=== PATIENT | male | born 1955 | race Caucasian/White ===

== ENCOUNTER 2018-06-10 09:55 | Day surgery (SDC) | payer OTHER ==
[2018-06-08 09:11] VITALS: BMI 22.4
[~2018-06-10 09:55] MED LIST: LACTATED RINGERS 1,000 ML IV SCH
[2018-06-10 10:20] VITALS: TEMP 98.9
[2018-06-10 10:24] LABS: Glucose,Whole Blood 61 mg/dL (75-99)
[2018-06-10] MEDS ORDERED: DEXTROSE 50%-WATER 50 ML SYRINGE IVP ONE (10:25)
[2018-06-10] MEDS ORDERED: PROPOFOL 10 MG/ML 20 ML VIAL IV ONE (10:31)
[2018-06-10 10:42] LABS: Glucose,Whole Blood 125 mg/dL (75-99)
--- NOTE | 2018-06-10 10:55 | P.PCN ---
Date of Procedure: 06/10/18 Procedure(s) Performed: Procedure: Total colonoscopy. Preoperative diagnosis: Change in bowel habits. Postoperative diagnosis: Sigmoid diverticulosis with no evidence of acute diverticulitis, strictures, polyps or cancer. Preparation: HalfLytely prep. Sedation: Was provided by anesthesia. Brief clinical history: The patient is a 63-year-old male who is scheduled for this evaluation because of change in bowel habits since last month with feeding for this and infrequent bowel movements. He has no other abdominal complaints, bleeding or anemia. This would be his first colonoscopy. Procedure: With the patient left lateral decubitus position and after informed consent and adequate sedation, the perianal area was inspected and it did not show any fissures or fistulas. There were no masses felt on digital rectal examination. The Olympus CFH 190L video colonoscope was then inserted in the rectum in the usual fashion and advanced to the cecum. There were few diverticular orifices seen scattered in the sigmoid with no evidence of acute diverticulitis or strictures. No polyps or tumors were seen or any other pathology. I retroflexed the endoscope in the rectum before the endoscope was withdrawn. The patient tolerated the procedure well. Plan: The patient was reassured. Discussed dietary measures. He will follow up with you as planned and I recommended repeat exam in 10 years.
[2018-06-10 11:20] VITALS: BP 137/89; PULSE 79; RESP 18
[2018-06-10 11:20] LABS: Glucose,Whole Blood 108 mg/dL (75-99)
== END 2018-06-10 11:48 | disposition home or self-care (01) ==
LOC: ORWHC2ENDO 09:55
DX: K57.30 Diverticulosis of large intestine without perforation or abscess without bleeding (principal); M06.9 Rheumatoid arthritis, unspecified; M19.90 Unspecified osteoarthritis, unspecified site; F17.210 Nicotine dependence, cigarettes, uncomplicated; Z79.891 Long term (current) use of opiate analgesic; Z79.899 Other long term (current) drug therapy
CPT/HCPCS: 45378; J2704

== ENCOUNTER → 2018-06-24 | Outpatient (CLI) | payer OTHER | LOC: LABWHC1 11:17 | PROVIDERS: ATTEND Internal Medicine Rheumatology | DX: M06.9 Rheumatoid arthritis, unspecified (principal) | CPT/HCPCS: 36415 ==

== ENCOUNTER 2018-07-08 07:46 | Day surgery (SDC) | payer OTHER ==
[2018-07-06 13:40] VITALS: BMI 20.2
[~2018-07-08 07:46] MED LIST changes: +LIDOCAINE 1% 20 ML VIAL (10MG/ML) FOR IV START INTRADERMA PRN; +MIDAZOLAM (PF) 2 MG/2 ML VIAL IV PRN
[2018-07-08 08:21] LABS: Glucose,Whole Blood 79 mg/dL (75-99)
[2018-07-08 08:22] VITALS: RESP 16; TEMP 97.8
[2018-07-08] MEDS ORDERED: PROPOFOL 10 MG/ML 20 ML VIAL IV ONE (09:09)
[2018-07-08] MEDS ORDERED: LIDOCAINE 1% INJ 10MG/ML (20 ML MDV) ONE (09:09)
[2018-07-08 09:39] LABS: Glucose,Whole Blood 87 mg/dL (75-99)
--- NOTE | 2018-07-08 09:39 | P.PCN ---
Date of Procedure: 07/08/18 Procedure(s) Performed: Procedure: Esophagogastroduodenoscopy and biopsy. Preoperative diagnosis: Dysphagia. Postoperative diagnosis: 1. Gastritis and ulcerated mass in the cardia consistent with cancer. 2. Biopsies obtained. Preparation and sedation: Was provided by anesthesia. Brief clinical history: The patient is a 63-year-old male who has been experiencing no appetite and lost 20 pounds. He was initially referred for colonoscopy which was performed last month and showed diverticulosis. He has dental extractions in April and some of his symptoms were initially felt to be related to having not been able to chew his food well. A barium swallow was recommended and it was done earlier this month and that showed possible narrowing in the distal esophagus. This evaluation is to assess for stricture or other pathology. Procedure: With the patient on his left lateral decubitus position and after informed consent and adequate sedation, I passed the Olympus-GIF H 190 video upper endoscope through the cricopharyngeus down the esophagus. There was minimal hesitation to passing the endoscope in the distal esophagus and I noted some friability. The esophagus did not show any obvious esophagitis or masses. The endoscope was then passed into the stomach which was insufflated with air and inspected in detail including the retroflex view in the cardia. I also passed the endoscope through the pylorus into the duodenum. Pyloric channel did not show any ulcers. Duodenal bulb, post bulbar area and descending duodenum mottling and erythema. I obtained biopsies from the duodenum. The antrum showed diffuse mottling erythema and in the retroflex view in the cardia there was an ulcerated mass noted surrounding the endoscope. I obtained pictures of that area and multiple biopsies. It appeared consistent with a carcinoma. It measured around 4 or 5 cm in greatest dimension as seen endoscopically. The patient tolerated the procedure well. Plan: I summarized the findings to the patient and his daughter. Will await biopsy results. I anticipate referring this patient to oncology for further evaluation and definitive treatment.
[2018-07-08 10:10] VITALS: BP 138/89; PULSE 65
== END 2018-07-08 10:15 | disposition home or self-care (01) ==
LOC: ORWHC2ENDO 07:46
DX: C16.3 Malignant neoplasm of pyloric antrum (principal); K29.70 Gastritis, unspecified, without bleeding; M19.90 Unspecified osteoarthritis, unspecified site; M06.9 Rheumatoid arthritis, unspecified; F17.210 Nicotine dependence, cigarettes, uncomplicated; Z79.891 Long term (current) use of opiate analgesic; Z79.52 Long term (current) use of systemic steroids; Z79.899 Other long term (current) drug therapy
CPT/HCPCS: 88305; 43239; J2001; J2704

== ENCOUNTER → 2018-07-24 | Outpatient (CLI) | payer OTHER ==
--- NOTE | 2018-07-25 12:57 | PE ---
Nuclear medicine PET/CT HISTORY: Carcinoma of stomach, initial Patient received 14.5 mCi F-18 FDG intravenously in delayed scanning was performed from skull base to the mid thighs. Localization and attenuation correction CT scan was. No comparisons Neck and CHEST: There is no cervical adenopathy. There is a focus of soft tissue within the left paro tid gland measuring approximately 9 mm, SUV is 4.5. Carotid artery calcifications are present. Right axillary soft tissue density is noted which likely represents a node versus redundancy in a vein with localized intravenous pharmaceutical, SUV at this level is 4.6. No pleural or pericardial effusion. There is a nodule soft tissue attenuation at the posterior and lateral margin of the descending aorta , axial image 105 measuring approximately 12 mm which shows an SUV of 4.1. There is a left hilar soft tissue mass present, SUV is 5.1. 2 left upper lobe nodules at this same level are subcentimeter in s ize and show mild hypermetabolic uptake in one of the 2 nodules, SUV is only 1.6, however, there is a larger nodule in the left upper lobe on axial image 78 measuring 1 cm, SUV is 4.3. Subcentimeter rig ht lower lobe nodule on axial image 96 shows mild hypermetabolic uptake, SUV 1.2, at the inferior asp ect of the right lower lobe there is a cavitary lesion present axial image 120, SUV is 2.3, the lesio n measures 18 mm. Mild uptake noted in the right axilla and nonenlarged nodes, SUV 4.2. Emphysematous changes are present within the lungs. Abdomen pelvis: New the level of the gastroesophageal junction there is hypermetabolic uptake identif ied likely at the level of the gastric cardia, SUV is 3.4 likely represent patient's gastric carcinom a. There is no evident retroperitoneal adenopathy. No evident liver mass. There is no ascites. Uptake along the proximal small bowel may be physiologic. Prostate is enlarged and shows associated calcifi cations. Urinary bladder shows a thickened wall possibly due to chronic outlet obstruction. Osseous structures: There is uptake in the left shoulder likely related to patient's postsurgical jonah nge. Degenerative disc changes, facet arthropathy noted in the lower lumbar spine. IMPRESSION: Findings could be indicative of gastric carcinoma, there are findings consistent with met astatic disease as described.
== END | disposition home or self-care (01) ==
LOC: RADPETMAIN 13:18
PROVIDERS: ATTEND Internal Medicine Hematology & Oncology
DX: C16.0 Malignant neoplasm of cardia (principal)
CPT/HCPCS: 78815; A9552

== ENCOUNTER → 2018-08-02 | Outpatient (CLI) | payer OTHER ==
[2018-08-02 19:22] LABS: C Reactive Protein 0.7 mg/dL (0.0-0.8)
== END | disposition home or self-care (01) ==
LOC: LABWHC1 12:09
PROVIDERS: ATTEND Internal Medicine Rheumatology
DX: M06.9 Rheumatoid arthritis, unspecified (principal)
CPT/HCPCS: 36415; 82565; 85652; 86140

== ENCOUNTER 2018-08-12 08:46 | Day surgery (SDC) | payer OTHER ==
[2018-08-12] MEDS ORDERED: ALPRAZolam 0.5 MG TAB PO STA (09:50)
[2018-08-12 09:54] VITALS: RESP 18; TEMP 98.3
[2018-08-12 11:32] VITALS: BP 128/70; PULSE 74
--- NOTE | 2018-08-12 13:14 | US ---
EXAMINATION TYPE: US biopsy lymph node core biopsy right axillary node DATE OF EXAM: 08/12/2018 HISTORY: Right axillary adenopathy, abnormal PET/CT. FINDINGS: Maximal barrier technique was utilized. The skin overlying a suitable path to the patient' s right axillary node was localized with ultrasound and the overlying skin prepped and draped. Ultra sound was utilized with sterile technique. Lidocaine was used for local anesthesia. 3 passes with a fine needle were made and aspirated specimen submitted to cytology. A skin guillaume was made with a scal pel. An 18-gauge needle was advanced under direct ultrasound guidance and core specimen obtained of the mass. 3 core specimens obtained. Specimen submitted in formalin to Pathology. Following the proc edure, hemostasis achieved and the patient is discharged in stable condition without complication. IMPRESSION:STATUS POST ULTRASOUND GUIDED CORE BIOPSY OF right axillary adenopathy, PATHOLOGY IS PENDI NG. THIS PROCEDURE IS PERFORMED BY THE UNDERSIGNED.
== END 2018-08-12 11:25 | disposition home or self-care (01) ==
LOC: RADPROMAIN 08:46
PROVIDERS: ATTEND Internal Medicine Hematology & Oncology
DX: R59.9 Enlarged lymph nodes, unspecified (principal); C16.9 Malignant neoplasm of stomach, unspecified
CPT/HCPCS: 10005; 38505; 76942; 88173; 88305; 88341; 88342

== ENCOUNTER 2018-08-30 09:54 | Day surgery (SDC) | payer OTHER ==
[2018-08-27 11:48] VITALS: BMI 19.0
[~2018-08-30 09:54] MED LIST changes: +ALBUTEROL NEB (CONC) 2.5 MG/0.5 ML INHALATION ONE; +DEXAMETHASONE SOD PHOSPHATE 10 MG/ML 1 ML VIAL IV ONE; +LIDOCAINE 2% (PF) 20 MG/ML 5 ML VIAL INHALATION ONE; +LIDOCAINE VISCOUS 300 MG/15 ML CUP MUCOUS MEM ONE; -MIDAZOLAM (PF) 2 MG/2 ML VIAL IV PRN; +MIDAZOLAM 2 MG/2 ML VIAL IV PRN; +SODIUM CHLORIDE 0.9% 1,000 ML IV SCH; +fentaNYL (PF) 50 MCG/ML 2 ML AMP IV PRN
[2018-08-30 10:19] VITALS: RESP 16; TEMP 97.7
[2018-08-30] MEDS ORDERED: ONDANSETRON 4 MG/2 ML VIAL IVP ONE (10:30)
--- NOTE | 2018-08-30 11:50 | CT ---
EXAMINATION TYPE: CT Chest alexa Roberson Protocol DATE OF EXAM: 08/30/2018 COMPARISON: PET scan 07/24/2018 HISTORY: Pulmonary nodules/mass CT DLP: 651 mGycm Automated exposure control for dose reduction was used. FINDINGS: Scanning was performed prior to pulmonology intervention. Artifact from the left shoulder prostheses limits assessment of the soft tissues neck. Diffuse emphysematous changes are noted. Calcification po steriorly within the right pleura noted. There is a mass in the left upper lobe measuring 1.2 cm. Add itional pulmonary nodules are seen measuring under a centimeter and there is tree-in-bud and groundgl ass changes in the left perihilar region. There also appears to be a mass within the posterior segmen t right lower lobe measuring 1.1 cm. Cavitary lesion or mild involving the posterior right lower lobe measuring 1.7 cm. No pleural effusion or pneumothorax. Additional nodule seen anteriorly in the left upper lobe on image 26 measuring 7 mm. Additional nodule right upper lobe axial image 38 measuring 3 mm Assessment for adenopathy limited due to noncontrast technique. There is left hilar soft tissue fulln ess measuring short axis of 2 cm suspicious for left hilar neoplastic process or adenopathy. There is a lucent lesion involving the mid lateral right rib which could been the basis of early metastases. Best noted on sagittal image 4. Hypertrophic and degenerative changes of the vertebral column are not ed. Gastric wall thickening noted. IMPRESSION: 1. Large left hilar mass with multiple bilateral pulmonary nodules suspicious for malignancy. 2. Marked gastric wall thickening correlate for history of gastric carcinoma.
[2018-08-30] MEDS ORDERED: ROCURONIUM BROMIDE 10 MG/ML 10 ML VIAL IV ONE (12:19)
[2018-08-30] MEDS ORDERED: fentaNYL (PF) 50 MCG/ML 2 ML AMP ONE (12:19)
[2018-08-30] MEDS ORDERED: PROPOFOL 10 MG/ML 20 ML VIAL IV ONE (12:19)
[2018-08-30] MEDS ORDERED: SUCCINYLCHOLINE CHLORIDE 100 MG/5 ML SYR IV ONE (12:19)
[2018-08-30] MEDS ORDERED: LIDOCAINE 1% INJ 10MG/ML (20 ML MDV) ONE (12:19)
[2018-08-30] MEDS ORDERED: NEOSTIGMINE 1 MG/ML 10 ML VIAL ONE (12:19)
[2018-08-30] MEDS ORDERED: GLYCOPYRROLATE 0.2 MG/ML 2 ML VIAL ONE (12:19)
[2018-08-30] MEDS ORDERED: MIDAZOLAM 2 MG/2 ML VIAL ONE (12:19)
--- NOTE | 2018-08-30 12:55 | P.PCN ---
Date of Procedure: 08/30/18 Preoperative Diagnosis: Left upper lobe mass Postoperative Diagnosis: Left upper lobe mass Procedure(s) Performed: Navigational bronchoscopy, transbronchial biopsy, transbronchial brushings, transbronchial needle aspirate, bronchioloalveolar lavage Anesthesia: SONIAA Surgeon: Gissel Shah Estimated Blood Loss (ml): 0 Pathology: other Condition: stable Disposition: same day
[2018-08-30 13:54] VITALS: BP 121/81; PULSE 72
== END 2018-08-30 14:07 | disposition home or self-care (01) ==
LOC: ORWHC2ENDO 09:54
PROVIDERS: ATTEND Internal Medicine Critical Care Medicine
DX: C34.12 Malignant neoplasm of upper lobe, left bronchus or lung (principal); J44.9 Chronic obstructive pulmonary disease, unspecified; M06.9 Rheumatoid arthritis, unspecified; F17.210 Nicotine dependence, cigarettes, uncomplicated; M19.90 Unspecified osteoarthritis, unspecified site; Z85.028 Personal history of other malignant neoplasm of stomach; Z96.651 Presence of right artificial knee joint; Z96.612 Presence of left artificial shoulder joint; Z90.49 Acquired absence of other specified parts of digestive tract; Z98.890 Other specified postprocedural states; Z80.8 Family history of malignant neoplasm of other organs or systems
CPT/HCPCS: 94640; 88104; 88108; 88305; 88342; 88341; 87070; 87205; 87077; 87186; 71250; 31628; 31629; 31623; 31624; 31627; J2250; J1100; J2710; J2405; J2001 ×2; J3010; J0330; J2704

== ENCOUNTER → 2018-11-04 | Outpatient (CLI) | payer OTHER ==
[2018-11-04 10:06] LABS: African American GFR (CKD) >90 (>60 ml/min/1.73 sqM); Blood Urea Nitrogen 25 mg/dL (9-20)
--- NOTE | 2018-11-04 11:34 | CT ---
EXAMINATION TYPE: CT ChestAbdPelvis w con DATE OF EXAM: 11/04/2018 COMPARISON: 08/30/2018, 07/24/2018 HISTORY: Lung CA, Gastric CA CT DLP: 986 mGycm Automated exposure control for dose reduction was used. CONTRAST: CT scan of the chest, abdomen and pelvis is performed with Oral Contrast and with IV Contrast, patien t injected with 100 mL of Isovue 300. FINDINGS: LUNGS: Diffuse emphysematous changes are noted. Calcification posteriorly within the right pleura not ed. There is a mass in the left upper lobe measuring 1.2 cm. On the previous exam and now measuring 7 x 4 mm. Previous exam reported 2 additional pulmonary nodules are seen measuring under a centimeter in the le ft upper lobe which now measure approximately 2 mm and have shown interval improvement. There also appears to be a mass within the posterior segment right lower lobe measuring 1.1 cm. On th e previous exam which has essentially resolved Cavitary lesion or bleb involving the posterior right lower lobe measuring 1.7 cm. Is stable. No pleural effusion or pneumothorax. Additional nodule seen anteriorly in the left upper lobe measuring 7 mm. Additional nodule right uppe r lobe measuring 3 mm. Tiny bleb or cavitary lesion measuring 4 mm in the left periaortic region of the superior segment left lower lobe is stable These appear stable. Calcified subpleural nodule right upper lobe posteriorly. MEDIASTINUM: Left hilar adenopathy now measures 1 cm in short axis and previously measured 1.5 cm. Ad ditional shotty adenopathy with no additional pathologic adenopathy. OTHER: No additional significant abnormality is seen. LIVER/GB: No significant abnormality is appreciated. Hepatic calcification is stable. PANCREAS: No significant abnormality is seen. SPLEEN: No significant abnormality is seen. ADRENALS: Nonspecific is 1 cm nodular thickening of the left adrenal gland stable.. KIDNEYS: No significant abnormality is seen. BOWEL: There remains thickening at the level the GE junction of the gastric wall which is stable. Spencer el gas pattern nonspecific. LYMPH NODES: No greater than 1 cm abdominal or pelvic lymph nodes are appreciated. OSSEOUS STRUCTURES: Sclerotic densities involving the femur are too small to characterize but likely related to bone island. Degenerative change of the spine.. OTHER: Aorta of normal caliber. No free fluid. IMPRESSION: 1. Interval marked improvement in appearance of the pulmonary nodules and left hilar adenopathy relat deloris to the prior exam as measured above. 2. Stable appearance of the gastric GE junction with wall thickening suspicious for malignancy. 3. No evidence of a new adenopathy or mass. 4. COPD.
== END | disposition home or self-care (01) ==
LOC: RADCTMAIN 09:20
PROVIDERS: ATTEND Internal Medicine Hematology & Oncology
DX: J44.9 Chronic obstructive pulmonary disease, unspecified (principal); K92.89 Other specified diseases of the digestive system; R91.8 Other nonspecific abnormal finding of lung field; R59.9 Enlarged lymph nodes, unspecified; C34.12 Malignant neoplasm of upper lobe, left bronchus or lung; C16.0 Malignant neoplasm of cardia
CPT/HCPCS: 82565; 84520; 71260; 74177; 36415; Q9967

== ENCOUNTER → 2019-01-08 | Outpatient (CLI) | payer OTHER ==
--- NOTE | 2019-01-11 07:57 | PE ---
Nuclear medicine PET/CT HISTORY: Lung cancer, subsequent Patient received 12.8 mCi F-18 FDG intravenously in delayed scanning was performed from skull base to the mid thighs. Localization and attenuation correction CT scan was performed. Correlation to CT chest abdomen pelvis 11/04/2018, nuclear medicine PET/CT 07/24/2018 Neck and chest: There is a focus of hypermetabolic uptake associated with a left parotid soft tissue mass, SUV is 4.7. Mild uptake in the right axilla, no definite cailin enlargement, SUV only 1.3. There is no evident pleural or pericardial effusion. Probable scarring or basilar atelectatic changes are present. Nodular density in the left upper lobe subcentimeter in size. No associated uptake. ABDOMEN: Soft tissue near the gastric Cardia level shows hypermetabolic uptake, SUV 4.3. Uptake withi n the colon is likely physiologic. Osseous structures show diffuse hypermetabolic uptake, possibly due to marrow stimulation. Photopenic focus in the left shoulder compatible with patient's shoulder arthroplasty, associated surrounding h ypermetabolic uptake felt likely to be postoperative. IMPRESSION: Stable hypermetabolic uptake in the region of the left parotid gland. Improvement in the uptake seen in the prior exam within the lungs, right axilla.
== END | disposition home or self-care (01) ==
LOC: RADPETMAIN 07:15
PROVIDERS: ATTEND Internal Medicine Hematology & Oncology
DX: C16.0 Malignant neoplasm of cardia (principal); C34.12 Malignant neoplasm of upper lobe, left bronchus or lung; Z92.21 Personal history of antineoplastic chemotherapy
CPT/HCPCS: 78815; A9552

== ENCOUNTER 2019-02-01 09:29 | Day surgery (SDC) | payer OTHER ==
[2019-01-28 10:27] VITALS: BMI 18.1
[~2019-02-01 09:29] MED LIST changes: -ALBUTEROL NEB (CONC) 2.5 MG/0.5 ML INHALATION ONE; -DEXAMETHASONE SOD PHOSPHATE 10 MG/ML 1 ML VIAL IV ONE; -LIDOCAINE 2% (PF) 20 MG/ML 5 ML VIAL INHALATION ONE; -LIDOCAINE VISCOUS 300 MG/15 ML CUP MUCOUS MEM ONE; -MIDAZOLAM 2 MG/2 ML VIAL IV PRN; -SODIUM CHLORIDE 0.9% 1,000 ML IV SCH; -fentaNYL (PF) 50 MCG/ML 2 ML AMP IV PRN
[2019-02-01 10:26] VITALS: TEMP 97.8
[2019-02-01] MEDS ORDERED: LIDOCAINE 1% INJ 10MG/ML (20 ML MDV) ONE (10:44)
[2019-02-01] MEDS ORDERED: MIDAZOLAM 2 MG/2 ML VIAL ONE (10:44)
[2019-02-01] MEDS ORDERED: fentaNYL (PF) 50 MCG/ML 2 ML AMP ONE (10:44)
[2019-02-01] MEDS ORDERED: PROPOFOL 10 MG/ML 20 ML VIAL IV ONE (10:44)
[2019-02-01 11:33] VITALS: RESP 18
--- NOTE | 2019-02-01 11:42 | P.PCN ---
Date of Procedure: 02/01/19 Description of Procedure: BRIEF HISTORY: 63-year-old male presents for outpatient EGD for evaluation of gastric cancer. The patient has a prior history of adenocarcinoma of the stomach diagnosed in 06/2018 when EGD showed a mass in the cardia of the stomach with biopsies positive for adenocarcinoma. Patient had oncology workup which was found to be significant for a second primary in the lungs. The patient has undergone chemotherapy with good response from his lung primary however has continued to report symptoms of dysphagia and is currently only tolerating a liquid diet. EGD was ordered for further evaluation. PROCEDURE PERFORMED: Esophagogastroduodenoscopy incomplete/aborted. PREOPERATIVE DIAGNOSIS: gastric cancer, esophageal dysphagia. ESTIMATED BLOOD LOSS: Minimal. IV sedation per anesthesia. PROCEDURE: After informed consent was obtained, the patient was brought into the endoscopy unit. IV sedation was administered by Anesthesia under continuous monitoring. Initially the Olympus GIF-190 video endoscope was inserted into the mouth. Esophagus intubated without any difficulty. The endoscope was advanced to approximately 39 cm from the incisors, and cannot be advanced any further likely secondary to external compression from known gastric adenocarcinoma previously seen in the cardia of the stomach on initial EGD in 06/2018. Gentle pressure was used to try to advance the endoscope however scope was not able to traverse the area. At this time the procedure was aborted. The patient tolerated the procedure well. IMPRESSION: Incomplete esophagogastroduodenoscopy secondary to extreme narrowing of the distal esophagus measuring approximately 1 mm just proximal to the GE junction likely secondary to external compression from known gastric adenocarcinoma. RECOMMENDATIONS: The findings of this examination were discussed with the patient, and his daughter. At this time the case has been discussed with the patient's primary oncologist as well as the advanced endoscopy team at [facility]. If the patient is amenable we'll have the patient referred to [facility] for esophageal stent placement. Plan this time is to have patient also referred to the radiation oncology service for evaluation for external beam radiation therapy. Patient should be maintained on a clear liquid diet at this time as tolerated.
[2019-02-01 11:59] VITALS: BP 120/73; PULSE 63
== END 2019-02-01 12:12 | disposition home or self-care (01) ==
LOC: ORWHC2ENDO 09:29
PROVIDERS: ATTEND Internal Medicine
DX: K22.2 Esophageal obstruction (principal); Z53.8 Procedure and treatment not carried out for other reasons; C16.9 Malignant neoplasm of stomach, unspecified; C34.90 Malignant neoplasm of unspecified part of unspecified bronchus or lung; Z92.21 Personal history of antineoplastic chemotherapy; Z72.0 Tobacco use; Z96.651 Presence of right artificial knee joint; M06.9 Rheumatoid arthritis, unspecified; Z80.8 Family history of malignant neoplasm of other organs or systems; Z79.891 Long term (current) use of opiate analgesic
CPT/HCPCS: 43235; J2250; J2001; J3010; J2704

== ENCOUNTER → 2019-04-27 | Outpatient (CLI) | payer OTHER ==
[2019-04-27 09:38] LABS: African American GFR (CKD) >90 (>60 ml/min/1.73 sqM); Blood Urea Nitrogen 17 mg/dL (9-20); Non-African American GFR(CKD) >90 (>60 ml/min/1.73 sqM)
--- NOTE | 2019-04-27 13:30 | CT ---
EXAMINATION TYPE: CT ChestAbdPelvis w con DATE OF EXAM: 04/27/2019 COMPARISON: 01/08/2019 and 11/04/2018 HISTORY: 64-year-old male with stomach cancer and lung cancer. TECHNIQUE: Contiguous axial scanning of the chest, abdomen, and pelvis performed with IV Contrast, pa tient injected with 100 ml mL of Isovue 300. Delayed images through the kidneys were obtained. Mcmillan l/sagittal reconstructions performed. CT DLP: 952 mGycm Automated exposure control for dose reduction was used. FINDINGS: CHEST: Heart normal size without pericardial effusion. Aorta normal caliber with mild atherosclerotic arch calcifications and conventional arch vessel banner yolis anatomy. Precarinal lymph node measures 6 mm, unchanged. Subcarinal lymph node measures 8 mm, unchanged. Left hilar lymph node measures 1 cm, unchanged. Mild centrilobular emphysema. Calcified granuloma posterior right upper lobe. No consolidation or pl eural effusion. A few 4 mm and smaller pulmonary nodules on the right are unchanged back to at least 11/04/2018. Left upper lobe pulmonary nodule measures 9 mm versus 6 mm on 01/08/2019 and 7 mm on 11/04/2018. ABDOMEN: Circumferential wall thickening at the GE junction has progressed from 01/08/2019 and now there is a metallic stent in place extending into the proximal gastric body. Soft tissue may be partially extend ing into the proximal end of the stent, refer to axial image 56. Tiny subcentimeter hypodensities scattered throughout the liver are nonspecific, probable cysts. Port al venous system is patent. Stable prominence to the bile duct. Gallbladder, right adrenal gland, kidneys, spleen, and pancreas appear within normal limits. Stable slight nodular thickening of the left adrenal gland dating back to at least 11/04/2018. A few sm all gastrohepatic ligament lymph nodes, not enlarged by CT size criteria. No mesenteric or retroperit chandler lymphadenopathy. Moderate atherosclerotic changes within the infrarenal abdominal aorta and iliac arteries. No dilated small bowel, free fluid, or free air. Scattered [id number] stool. Mild circumferential wall thickening of the rectosigmoid junction, referred axial image 117. PELVIS: Circumferential bladder wall thickening. There is a enhancing nodule impressing into the posterior bl adder base measuring 1.3 cm. This is present back on 11/04/2018 as well, suspected BPH. Prostate gland itself measures up to 5.2 cm wide. No abnormal fluid collection in the pelvis or pelvic lymphadenopat hy. BONES: Mild degenerative change of the hips. Degenerative changes mid to lower lumbar spine. Left shoulder a rthroplasty partially visualized. No osseous destructive process seen. Grade 1 anterolisthesis L4-L5 from facet arthropathy. IMPRESSION: 1. A 9 MM LEFT UPPER LOBE PULMONARY NODULE SHOWS SLIGHT INCREASE IN SIZE. PREVIOUSLY MEASURING 6 MM O N 01/08/2019 AND 7 MM ON 11/04/2018. EARLY METASTATIC DISEASE NOT EXCLUDED AT THIS TIME. 2. STABLE 1 CM LEFT HILAR LYMPH NODE AND SCATTERED 4 MM AND SMALLER RIGHT-SIDED PULMONARY NODULES. 3. INCREASED THICKENING AT THE GE JUNCTION NOW WITH A METALLIC ESOPHAGEAL STENT. DISTAL ASPECT OF THE STENT IS WITHIN THE PROXIMAL BODY. THERE IS ABNORMAL SOFT TISSUE WHICH APPEARS TO PARTIALLY EXTEND I NTO THE PROXIMAL END OF THE STENT. FINDINGS SUGGEST NEOPLASTIC PROGRESSION HERE. 4. MILD CIRCUMFERENTIAL WALL THICKENING AT THE RECTOSIGMOID JUNCTION. CORRELATE FOR SYMPTOMS OF COLIT IS HERE. 5. A 1.3 CM ENHANCING NODULE AT THE POSTERIOR BLADDER BASE WAS PRESENT ON 11/04/2018 AND IS SUSPECTED T O REPRESENT BPH. MILD BLADDER WALL THICKENING COULD REPRESENT CYSTITIS OR CHRONIC BLADDER WALL HYPERT ROPHY.
== END | disposition home or self-care (01) ==
LOC: RADCTMAIN 08:49
PROVIDERS: ATTEND Internal Medicine Hematology & Oncology
DX: C16.0 Malignant neoplasm of cardia (principal); C34.12 Malignant neoplasm of upper lobe, left bronchus or lung; R91.8 Other nonspecific abnormal finding of lung field; R93.41 Abnormal radiologic findings on diagnostic imaging of renal pelvis, ureter, or bladder; R93.3 Abnormal findings on diagnostic imaging of other parts of digestive tract; Z96.89 Presence of other specified functional implants
CPT/HCPCS: 82565; 84520; 71260; 74177; 36415; Q9967

== ENCOUNTER 2019-05-24 08:30 | Day surgery (SDC) | payer OTHER ==
[2019-05-20 11:07] VITALS: BMI 18.3
[2019-05-24 09:09] VITALS: TEMP 98.9
[2019-05-24] MEDS ORDERED: PROPOFOL 10 MG/ML 20 ML VIAL IV ONE (09:48)
[2019-05-24] MEDS ORDERED: LIDOCAINE 1% INJ 10MG/ML (20 ML MDV) ONE (09:48)
[2019-05-24 10:20] VITALS: RESP 16
--- NOTE | 2019-05-24 10:27 | P.PCN ---
Date of Procedure: 05/24/19 Description of Procedure: BRIEF HISTORY: 64-year-old male presents for outpatient EGD for evaluation of gastric cancer. The patient has a prior history of adenocarcinoma of the stomach diagnosed in 06/2018 when EGD showed a mass in the cardia of the stomach with biopsies positive for adenocarcinoma. Patient had oncology workup which was found to be significant for a second primary in the lungs. The patient has undergone chemotherapy with good response from his lung primary however has continued to report symptoms of dysphagia and was taken for EGD with findings of an incomplete esophagogastroduodenoscopy secondary to extreme narrowing of the distal esophagus. The patient was subsequently sent to the [facility] where he had an esophageal stent placed and reports radiation therapy after the procedure. PROCEDURE PERFORMED: Esophagogastroduodenoscopy incomplete/aborted. PREOPERATIVE DIAGNOSIS: Gastric cancer, esophageal dysphagia. ESTIMATED BLOOD LOSS: Minimal. IV sedation per anesthesia. PROCEDURE: After informed consent was obtained, the patient was brought into the endoscopy unit. IV sedation was administered by Anesthesia under continuous monitoring. Initially the Olympus GIF-190 video endoscope was inserted into the mouth. Esophagus intubated without any difficulty. The endoscope was advanced to approximately 40 cm from the incisors, where the patient's esophageal stent was noted. The scope was able to be advanced a few centimeters into the stent but no further secondary to tumor ingrowth within the stent. At this time the endoscope was removed and a bronchoscope was used to advance the scope to approximately 50 cm from the incisors where again tumor was noted to be at the distal end of the stent causing and also complete obstruction. At this time the procedure was aborted. The patient tolerated the procedure well. IMPRESSION: Incomplete esophagogastroduodenoscopy secondary to tumor ingrowth into previously placed esophageal stent occurring approximately 43 cm from the incisors. A bronchoscope was then used to advance to approximately 50 cm from the incisors and the distal end of the esophageal stent where tumor growth prohibited advancement of the scope into the stomach. RECOMMENDATIONS: The findings of this examination were discussed with the patient, and his daughter. Procedure note will be sent to the patient's oncologist primary doctor. Unclear if treatment plan will be for further treatment of the gastric carcinoma. Patient may benefit from further evaluation by advance endoscopy. Consideration could also be made for placement of a feeding tube, with J-tube placement by IR for surgery depending on patient wishes for further care.
[2019-05-24 10:42] VITALS: BP 99/68; PULSE 82
== END 2019-05-24 10:55 | disposition home or self-care (01) ==
LOC: ORWHC2ENDO 08:30
PROVIDERS: ATTEND Internal Medicine
DX: D49.0 Neoplasm of unspecified behavior of digestive system (principal); T85.698A Other mechanical complication of other specified internal prosthetic devices, implants and grafts, initial encounter; C16.0 Malignant neoplasm of cardia; C34.90 Malignant neoplasm of unspecified part of unspecified bronchus or lung; K08.109 Complete loss of teeth, unspecified cause, unspecified class; K21.9 Gastro-esophageal reflux disease without esophagitis; M06.9 Rheumatoid arthritis, unspecified; Z87.891 Personal history of nicotine dependence; Z79.891 Long term (current) use of opiate analgesic; Z90.49 Acquired absence of other specified parts of digestive tract; Z98.890 Other specified postprocedural states; Z90.89 Acquired absence of other organs; Z96.612 Presence of left artificial shoulder joint; Z96.651 Presence of right artificial knee joint; Z92.21 Personal history of antineoplastic chemotherapy; Z92.3 Personal history of irradiation; Z80.8 Family history of malignant neoplasm of other organs or systems
CPT/HCPCS: 43235; J2001; J2704

== ENCOUNTER 2019-06-13 06:34 | Observation (INO) | payer OTHER ==
[~2019-06-13 06:34] MED LIST changes: +DEXAMETHASONE SOD PHOSPHATE 10 MG/ML 1 ML VIAL IV ONE; +LIDOCAINE 1% (10MG/ML) FOR IV START INTRADERMA PRN; -LIDOCAINE 1% 20 ML VIAL (10MG/ML) FOR IV START INTRADERMA PRN; +MIDAZOLAM 2 MG/2 ML VIAL IV PRN
[2019-06-13 07:31] VITALS: RESP 16
[2019-06-13] MEDS ORDERED: ONDANSETRON 4 MG/2 ML VIAL IVP ONE (07:43)
[2019-06-13] MEDS ORDERED: HEPARIN SODIUM,PORCINE 5,000 UNIT/ML 1 ML VIAL SQ ONE (07:49)
[2019-06-13] MEDS ORDERED: MIDAZOLAM 2 MG/2 ML VIAL ONE (07:53)
[2019-06-13] MEDS ORDERED: NEOSTIGMINE 1 MG/ML 10 ML VIAL ONE (07:53)
[2019-06-13] MEDS ORDERED: fentaNYL (PF) 50 MCG/ML 2 ML AMP ONE (07:53)
[2019-06-13] MEDS ORDERED: PHENYLEPHRINE-0.9% NACL SYG 1 MG/10 ML SYRINGE ONE (07:53)
[2019-06-13] MEDS ORDERED: ROCURONIUM BROMIDE 10 MG/ML 5 ML VIAL IV ONE (07:53)
[2019-06-13] MEDS ORDERED: LIDOCAINE 1% INJ 10MG/ML (20 ML MDV) ONE (07:53)
[2019-06-13] MEDS ORDERED: PROPOFOL 10 MG/ML 20 ML VIAL IV ONE (07:53)
[2019-06-13] MEDS ORDERED: GLYCOPYRROLATE 0.2 MG/ML 2 ML VIAL ONE (07:53)
[2019-06-13] MEDS ORDERED: LIDOCAINE 2%-EPI 1:100,000 20 ML VIAL SQ ONE ×2 (08:22)
[2019-06-13] MEDS ORDERED: MORPHINE SULFATE ER 30 MG TABLET PO PRN (08:58)
[2019-06-13] MEDS ORDERED: oxyCODONE-APAP 7.5-325MG 1 EACH TAB PO PRN (08:58)
[2019-06-13] MEDS ORDERED: NALOXONE 0.4 MG/ML 1 ML VIAL IV PRN (08:58)
[2019-06-13] MEDS ORDERED: PANTOPRAZOLE 40 MG/10 ML VIAL IV SCH (09:00)
[2019-06-13] MEDS ORDERED: predniSONE 5 MG TAB PO SCH (09:00)
[2019-06-13] MEDS ORDERED: HEPARIN SODIUM,PORCINE 5,000 UNIT/ML 1 ML VIAL SQ SCH (09:00)
[2019-06-13] MEDS ORDERED: HYDROcodone/APAP 15 ML SOLUTION PO PRN (09:02)
--- NOTE | 2019-06-13 09:06 | P.OP ---
Date of Procedure: 06/13/19 Preoperative Diagnosis: Metastatic gastric cancer, need for enteral nutrition Postoperative Diagnosis: Same Procedure(s) Performed: Placement jejunal feeding tube Anesthesia: QUENTIN Surgeon: Juana Clarke Estimated Blood Loss (ml): 5 Pathology: none sent Condition: stable Disposition: PACU Indications for Procedure: Patient has a metastatic gastric cancer. He had a previous stent at the GE junction which is occluding Operative Findings: The patient had multiple small metastatic implants on the mesentery and peritoneal surfaces. There were also larger implants noted on the omentum. Description of Procedure: The patient's taken the operative suite where he is prepped and draped in the usual sterile manner under general endotracheal anesthetic. The abdomen is entered through a small upper midline incision. Some matted omentum was able to be mobilized and the ligament of Treitz was identified. The bowel was then run distally to that. A site was chosen for the placement of the jejunal feeding tube. A pursestring suture of 3-0 Vicryl was placed along the antimesenteric border. A small stab incision was then made in the left abdomen and a jejunal feeding tube was brought through that opening. A small enterotomy was made and the tube was threaded through the small bowel distally. The balloon was inflated with 3 mL of sterile water. The pursestring suture was tied down. A Witzel tunnel was then formed using 3-0 Vicryl. The bowel was then tacked to the peritoneal surface using 3-0 Vicryl. The bowel lay in gentle loops. The fashion peritoneum were closed with 0 Vicryl. The skin was closed with 4-0 Sachin ryl in a subcuticular manner. Steri-Strips and dressings were applied. He tolerated the procedure without difficulty was taken recovery room in satisfactory condition. According to or personnel, ARE correct.
[2019-06-13] MEDS: HYDROmorphone 0.5 MG/0.5 ML SYRINGE IVP PRN ×4 (09:10→09:38)
[2019-06-13] MEDS ORDERED: LACTATED RINGERS 1,000 ML IV ONE (09:45)
[2019-06-13 10:44] VITALS: BP 138/69; PULSE 62; TEMP 97.8
[2019-06-13 11:17] VITALS: BMI 17.1
== END 2019-06-14 08:58 | disposition home or self-care (01) ==
LOC: INTOOBSV 06:34 → 2ORMAIN 06:34 → 5NMEDONC 09:38 → UNDODISIN 15:24
PROVIDERS: ADMIT Surgery; ATTEND Surgery
DX: C16.0 Malignant neoplasm of cardia (principal); C78.6 Secondary malignant neoplasm of retroperitoneum and peritoneum; M06.9 Rheumatoid arthritis, unspecified; K22.2 Esophageal obstruction; R47.02 Dysphasia; Z79.52 Long term (current) use of systemic steroids; Z79.891 Long term (current) use of opiate analgesic
CPT/HCPCS: 44372; G0379; G0378; J2250; J1644; J1100; J2710; J0690; J2405; J2001; J3010; J2370; J2704; J7512; C9113; J1170